=== PATIENT | female | born 1990 | race Caucasian/White ===

== ENCOUNTER 2020-06-10 15:43 | Outpatient (REF) | payer MEDICAID, SELFPAY | END 2020-06-10 15:44 | disposition home or self-care (01) | LOC: HO.LAB 15:43 | PROVIDERS: PCP Internal Medicine; Visit Provider Internal Medicine | DX: Z20.828 Contact with and (suspected) exposure to other viral communicable diseases (principal) | CPT/HCPCS: 87635 ==

== ENCOUNTER 2020-12-08 17:17 | Emergency (ER) | payer MEDICAID, SELFPAY ==
--- NOTE | ~2020-12-08 | US_ITS ---
EXAMINATION: US VENOUS WITH DOPPLER UPPER EXTREMITY, LEFT CLINICAL INFORMATION: DVT versus abscess. Pain COMPARISON: None TECHNIQUE: Ultrasound of the upper extremity is performed using compression sonography and color and pulse Doppler flow with assessment of augmentation of flow. There is also imaging and Doppler assessment of the jugular and subclavian veins. Spectral analysis with color-flow imaging is performed. FINDINGS: Respiratory variation, normal compression, and augmented flow are noted throughout the upper extremity including the axillary, brachial, cubital, and radial and ulnar veins. There is normal flow in the internal jugular and subclavian veins. There is no visible deep or superficial thrombophlebitis. There is a complex abscess in the left hand adjacent to the base of thumb measuring 3.7 x 2.4 x 3.0 cm. If the patient's symptoms progress, a followup ultrasound in 5 -7 days might be of value to exclude proximal propagation from a nonvisualized distal arm vein. US/US venous duplex UE LT IMPRESSION:. No DVT demonstrated in the left upper extremity. There is a small absence at the base of left thumb.
--- NOTE | ~2020-12-08 | XR_ITS ---
EXAMINATION: LEFT HAND CLINICAL INFORMATION: Swollen hand with question of osteomyelitis COMPARISON: None TECHNIQUE: 3 views left hand FINDINGS: Soft tissue swelling present at the base of the thumb. No bone or joint abnormality is seen. No foreign body is detected. XR/XR hand wrist LT IMPRESSION: Soft tissue swelling only.
[2020-12-08 18:36] VITALS: BP 106/54; PULSE 65; RESP 18; TEMP 37.4; O2SAT 98; BMI 21.6
[2020-12-08] MEDS: Acetaminophen 325 MG TABLET 650 MG PO ×2 (18:43→23:30)
--- NOTE | 2020-12-08 19:35 | ED.SKABFB ---
HPI - Skin/Abscess/Foreign Bdy General Chief complaint: Skin/Abscess/Foreign Body Stated complaint: abscess Time Seen by Provider: 12/08/20 19:13 Source: patient Mode of arrival: ambulatory Limitations: no limitations History of Present Illness HPI narrative: Patient presents to ED for left hand swelling/abscess for the past 4 days. Patient admits to injection heroin needle into the area. Patient admits to being a drug user of heroin. Patient also has 3-4 months . Related Data Previous Rx's Medication Instructions Recorded acetaminophen [Tylenol] 325 mg PO QID PRN #28 cap 12/08/20 clindamycin HCl 300 mg PO Q6H 10 Days #40 cap 12/08/20 Allergies Allergy/AdvReac Type Severity Reaction Status Date / Time No Known Allergies Allergy Verified 12/08/20 18:36 [No Known Allergies*] Review of Systems Review of Systems: Yes all other systems are reviewed and are negative Constitutional: Constitutional: Reports as per HPI and Reports no additional constitutional complaints Eyes: Eyes: Reports as per HPI and Reports no additional eye complaints ENT: Reports system reviewed and no additional complaints, except as documented and Reports as per HPI Cardiovascular: Cardiovascular: Reports as per HPI and Reports no additional cardiovascular complaints Respiratory: Respiratory: Reports as per HPI and Reports no additional respiratory complaints Gastrointestinal: Gastrointestinal: Reports as per HPI and Reports no additional gastrointestinal complaints Genitourinary: Genitourinary: Reports no additional female genitourinary complaints and Reports as per HPI Musculoskeletal: Musculoskeletal: Reports no additional musculoskeletal complaints, Reports as per HPI and Reports arthralgias (Left hand swelling.) Neurologic: Reports system reviewed and no additional complaints, except as documented and Reports as per HPI Psychiatric: Psychiatric: Reports no additional psychiatric complaints and Reports as per HPI [facility] Social History Social History Alcohol intake: never Smoking Status: Current every day smoker Smoked in Last 30 Days: No Substance Use Type: Heroin and IV Drugs Substance Use Frequency: Chronic Longstanding Any prior treatment program specific to substance use: No Advance Directives: No Advance Directives Information Provided: No Physical Exam Vital Signs: Vital Signs: Last Vital Signs Temp 98.9 F 12/08/20 23:50 Pulse 72 12/08/20 23:50 Resp 16 12/08/20 23:50 BP 110/72 12/08/20 23:50 Pulse Ox 98 12/08/20 18:36 Body Mass Index 21.6 Const: General: cooperative, healthy appearing, comfortable, no acute distress, well developed, alert, awake and Physically active Orientation/consciousness: patient oriented x3 HENMT: Head: Yes normal to inspection, Yes No palpable skull fracture present, Yes normocephalic, No atraumatic, No abrasion, No Murguia's sign, No contusion, No cranial bruits, No hematoma, No laceration, No occipital foramen tenderness, No palpable skull fracture, No raccoon eyes, No scalp lesion, No scalp tenderness, No Temporal artery tenderness present and No periorbital ecchymosis Eyes: General: appearance normal, both eyes and all related structures Neck: Neck: Yes normal visual inspection, Yes full ROM, Yes no lymphadenopathy, Yes no meningeal signs, Yes trachea midline, Yes supple and No tender Chest: Chest palpation & inspection: normal inspection of the chest and normal palpation of entire chest wall Resp: Effort & Inspection: normal respiratory effort and able to speak in complete sentences Auscultation: clear to auscultation bilaterally Cardio: Jugular venous distension: no JVD Heart sounds: S1 normal heart sound present and S2 normal heart sound present GI: Inspection: Yes normal to inspection Palpation (GI): Soft to palpation, not firm, nontender, no guarding and not rigid : General: No CVA tenderness and Yes no CVA tenderness Back/Spine/Pelvis: Back: no CVA tenderness, No CVA tenderness and No back tenderness Skin: General skin exam: no rashes or lesions noted and elasticity normal Neuro: General: patient oriented x3, no meningeal signs and CN's II-XI intact bilaterally Cranial nerves: Yes CN's II-XII intact bilaterally Extrem: Other: Left hand; redness and swelling of the dorsal aspect of left hand going into the thenar palm area and spreading down wrist. Patient does have complete motion of fingers. Neuro/vascular exam intact. Not suspect a tenosynovitis. . General: Yes normal to inspection and Yes full ROM Psych: Appearance: grossly normal, well kempt and not disheveled Course Course Course Narrative: History physical exam indicates cellulitis/abscess. Beleived patient benefit from IV antibiotics. Due to cannot do CT scan. Will do x-ray and send patient for ultrasound. Reevaluation(s) Reevaluation #1: After multiple attempts by nursing staff to get blood & IV access, I went to patient with ultrasound machine to perform ultrasound-guided IV so she got some IV antibiotics/labs, but patient refused. I discussed admission for IV antibiotics, but patient refused admission. Patient rather have abscess drain and start a trial of oral antibiotics. Patient refuse my attempt to do ultrasound guided IV. Reevaluation #2: Wound was cleaned with Betadine and normal saline. Wound anesthetized with 6 mL of lidocaine 2%. Size 11 blade was used for incision and pus was drained copious large amount. Wound culture sent. Patient refused packing. Patient informed to return to the ED in 2 days for wound check MDM - Skin/Abscess/Foreign Bdy MDM Narrative Medical decision making narrative: Left hand cellulitis. Abscess Lab Data Result diagrams: 12/08/20 Unknown Labs: Lab Results 12/08/20 12/08/20 Range/Units Unknown Unknown Sodium Cancelled Potassium Cancelled Chloride Cancelled Carbon Dioxide Cancelled Anion Gap Cancelled BUN Cancelled Creatinine Cancelled Estim Creat Clear Calc Cancelled Estimated GFR Cancelled Random Glucose Cancelled Calcium Cancelled Total Bilirubin Cancelled AST Cancelled ALT Cancelled Alkaline Phosphatase Cancelled C-Reactive Protein Cancelled Total Protein Cancelled Albumin Cancelled Discharge Plan Discharge Clinical Impression: Cellulitis, Abscess of skin or subcutaneous tissue Patient Disposition: Home, Self-Care Instructions: Cellulitis (ED), Abscess (ED) Additional Instructions: Return to the ED immediately for worsening redness, increased swelling of extremity, development of red streaks, fever, chills, chest pain, shortness of breath, nausea, dizziness, or any other concerning symptoms. Return to the ED in 2 days for wound check. Prescriptions: New clindamycin HCl 300 mg capsule 300 mg PO Q6H 10 Days Qty: 40 RF: 0 acetaminophen [Tylenol] 325 mg capsule 325 mg PO QID PRN (Reason: pain) Qty: 28 RF: 0 Referrals: Jasvir Payton MD [Primary Care Provider] - 2 days (Left hand cellulitis, abscess drain.) Interventions: ED Discharge Assessment Last Done: 12/08/20 23:45 Discharge Date/Time: 12/08/20 23:51 Print Language: Ukrainian
--- NOTE | 2020-12-08 21:12 | PC.NURSE ---
TRIED TO DRAW PT UNABLE TO FIND VEIN. EUGENE DIAZ ATTEMPTED TO FIND VEIN 1 SET OF BC DRAWN AND VEIN BLOWN. LAB CALLED TO DRAW LABS AND KEITH CASTAÑEDA AWARE. .
--- NOTE | 2020-12-08 22:17 | PC.NURSE ---
PT LAB HEMOLYSIS AFTER PHLEBOTOMY W[facility]TER HER LABS PT IS REFUSING A REDRAW KEITH CASTAÑEDA AWARE.
--- NOTE | 2020-12-08 22:36 | PC.NURSE ---
IV UNABLE TO BE OBTAINED PER KEITH CASTAÑEDA WE WILL DRAIN ABSCESS TO WRIST AND DO PO ANTIBIOTICS.PO XANAX WILL BE GIVEN.
[2020-12-08] MEDS: ALPRAZolam 0.5 MG TABLET 2 MG PO (22:46)
[2020-12-08] MEDS: Lidocaine HCl 2 % MPF 5 ML VIAL INFILTRATI ×2 (22:48)
--- NOTE | 2020-12-08 23:48 | PC.NURSE ---
PT REFUSED ULTRA SOUND GUIDED IV AND IV ANTIBIOTIC AT THIS TIME KEITH CASTAÑEDA WILL DRAIN ABSCESS AT BEDSIDE.
[2020-12-08 23:50] VITALS: BP 110/72; PULSE 72; RESP 16; TEMP 37.2
== END 2020-12-08 23:51 | disposition home or self-care (01) ==
PROVIDERS: Emergency Provider Internal Medicine; PCP Internal Medicine
DX: O26.892 Other specified pregnancy related conditions, second trimester (principal); L02.512 Cutaneous abscess of left hand; L03.114 Cellulitis of left upper limb; O99.322 Drug use complicating pregnancy, second trimester; F11.90 Opioid use, unspecified, uncomplicated; O99.332 Smoking (tobacco) complicating pregnancy, second trimester; Z3A.00 Weeks of gestation of pregnancy not specified
CPT/HCPCS: 10060; 36415; 73110; 73130; 80053; 86140; 87040; 87071; 87205; 93971; 96361; 96365; 96368; 99284

== ENCOUNTER 2021-10-22 21:58 | Emergency (ER) | payer MEDICAID, SELFPAY ==
[2021-10-22 22:21] VITALS: BP 107/69; PULSE 75; RESP 18; TEMP 36.4; O2SAT 97; BMI 21.5
[2021-10-22 22:51] LABS: Appearance Urine HAZY; Color Urine YELLOW; Glucose Urine UA NEG (NEG); Leukocyte Esterase Urine TRACE (NEG); Nitrite Urine NEG (NEG); Specific Gravity - Urine >= 1.030 (1.005-1.025); UACC Culture Trigger YES; Urine Blood 3+ (NEG); Urine Ketones NEG (NEG); Urine Protein TRACE MG/DL (NEG-TRACE)
[2021-10-22 23:06] LABS: Amphetamine Screen Urine Not Detected (Not Detect); Barbiturates, Urine Not Detected (Not Detect); Benzodiazepines Screen Urine POSITIVE (Not Detect); Cannabinoid Screen Urine Not Detected (Not Detect); Cocaine Screen Urine POSITIVE (Not Detect); Fentanyl, urine POSITIVE (Not Detect); Opiate Screen Urine POSITIVE (Not Detect); Phencyclidine Screen Urine Not Detected (Not Detect)
[2021-10-22 23:07] LABS: UPreg QC Valid YES; Urine Pregnancy NEGATIVE (NEGATIVE)
[2021-10-22 23:12] LABS: Bacteria Urine 2+ /LPF; Mucus Urine 2+ /LPF; Squamous Epithelial Cell Urine 1+ /LPF
--- NOTE | 2021-10-22 23:20 | ED.GENADULT ---
HPI - General Adult General Chief complaint: General Medical Stated complaint: post Time Seen by Provider: 10/22/21 22:42 Source: patient Mode of arrival: ambulatory Limitations: no limitations History of Present Illness HPI narrative: Patient comes to the emergency room complaining of dysuria, hematuria, vaginal discharge. Patient also states that she has been dealing with depression, patient has a 4-month-old baby. Patient states she has an 8-year-old child, when the child was born patient had similar symptoms. Patient denies suicidal or homicidal ideation. Patient denies abdominal pain, no fever or chills, no flank or abdominal pain. Related Data Previous Rx's Medication Instructions Recorded acetaminophen 325 mg capsule 325 mg PO QID PRN #28 cap 12/08/20 (Tylenol) clindamycin HCl 300 mg capsule 300 mg PO Q6H 10 Days #40 cap 12/08/20 doxycycline hyclate 100 mg capsule 100 mg PO DAILY #13 cap 10/22/21 sulfamethoxazole 800 1 tab PO BID #5 tab 10/22/21 mg-trimethoprim 160 mg tablet (Bactrim DS) Allergies Allergy/AdvReac Type Severity Reaction Status Date / Time No Known Allergies Allergy Verified 10/22/21 22:20 [No Known Allergies*] Review of Systems Review of Systems: Constitutional : No Weight loss, No Fever, No Chills, No Night Sweats, No Fatigue, No Malaise ENT/Mouth : No Hearing loss, No Ear Pain, No Nasal Congestion, No Sinus Pain, No Hoarseness, No sore throat, No Rhinorrhea, No Swallowing Difficulty Eyes: No Eye Pain, No Swelling, No Redness, No Foreign Body, No Discharge, No Vision Changes Cardiovascular : No Chest Pain, No SOB, No Dyspnea on Exertion, No Orthopnea, No Edema, No Palpitations Respiratory : No Cough, No Sputum, No Wheezing, No Smoke Exposure, No Dyspnea Gastrointestinal : No Nausea, No Vomiting, No Diarrhea, No Constipation, No abdominal Pain, No Hematochezia, No Melena Genitourinary : Complaining of dysuria, hematuria, urgency, no flank pain Musculoskeletal : No joint pain, No Myalgias, No Joint Swelling Skin : No Skin Lesions, No rash Neuro : No Weakness, No Numbness, No Paresthesias, No Loss of Consciousness, No Dizziness, No Headache Psych : Complaining of depression, depression, no suicidal ideation, no homicidal ideation Heme/Lymph: No Bruising, No Bleeding,No Lymphadenopathy Endocrine : No Polyuria, No Polydipsia, No Temperature Intolerance [facility] Past Medical History Medical History Asthma Chronic pain Hepatitis C Lumbar vertebral fracture depression Substance abuse Wrist fracture Social History Social History Alcohol intake: never Substance Use Type: Heroin and IV Drugs Advance Directives: No Advance Directives Information Provided: Yes Physical Exam ED Vital Signs: Vital Signs - 24 hr 10/22/21 22:21 Temperature 97.6 F Pulse Rate 75 Respiratory Rate 18 Blood Pressure 107/69 Pulse Oximetry 97 BMI result Body Mass Index 21.5 Const Other: Appearance: Alert. Oriented X3. No acute distress. Eyes: Pupils equal, round and reactive to light. ENT: Pharynx normal. Neck: Normal inspection. Neck supple. No lymph nodes noted. No crepitus CVS: Normal heart rate and rhythm. Pulses normal. Normal S1 and S2 Respiratory: No respiratory distress. Breath sounds normal. No Wheezing. No rales Abdomen: Soft and nontender. No rigidity. No distention. : Declined, requested empiric treatment for STDs Skin: Skin warm and dry. Normal skin color. Normal skin turgor. Extremities: No lower extremity edema. No Lacerations. No Rash Neuro: Oriented X 3. No motor deficit. No sensory deficit. Moving all extermities. No slurred speech. Cranial nerves 2-12 grossly intact Psych: Calm, cooperative, normal speech Course Course Course Narrative: Patient does have a UTI. Patient given ceftriaxone and p.o. doxycycline, 1 dose of Bactrim. Patient states that she is concerned that she will not be able to have a right after a certain time. At this time, patient is requesting that we only treat her for STD and urinary tract infection. At this time, patient states that she does not want to wait to be seen by [facility]. Patient states that she is not suicidal, not homicidal, and her baby safe at home Medical Decision Making Lab Data Labs: Lab Results 10/22/21 10/22/21 10/22/21 Range/Units 22:26 22:26 22:26 Urine Color YELLOW Urine Appearance HAZY Urine pH 6.0 (5.0-8.0) Ur Specific [place] >= 1.030 H (1.005-1.025) Urine Protein TRACE (NEG-TRACE) MG/DL Urine Glucose (UA) NEG (NEG) MG/DL Urine Ketones NEG (NEG) MG/DL Urine Blood 3+ H (NEG) Urine Nitrite NEG (NEG) Ur Leukocyte Esterase TRACE H (NEG) Urine RBC 15-29 H (0) /HPF Urine WBC 10-14 H (0-4) /HPF Ur Squamous Epith Cells 1+ /LPF Urine Bacteria 2+ /LPF Urine Mucus 2+ /LPF Urine Test NEGATIVE (NEGATIVE) Urine Opiates Screen POSITIVE H (Not Detect) Urine Fentanyl Screen POSITIVE H (Not Detect) Ur Barbiturates Screen Not Detected (Not Detect) Ur Phencyclidine Scrn Not Detected (Not Detect) Ur Amphetamines Screen Not Detected (Not Detect) U Benzodiazepines Scrn POSITIVE H (Not Detect) Urine Cocaine Screen POSITIVE H (Not Detect) U Marijuana (THC) Screen Not Detected (Not Detect) Discharge Plan Discharge Clinical Impression: UTI (urinary tract infection), Exposure to STD Patient Disposition: Home, Self-Care Instructions: Urinary Tract Infection in Women (DC) Additional Instructions: Please follow-up with your primary care physician tomorrow. If you have any worsening or new symptoms, please return to the emergency room or call 911 Prescriptions: New doxycycline hyclate 100 mg capsule 100 mg PO DAILY Qty: 13 0RF sulfamethoxazole-trimethoprim [Bactrim DS] 800-160 mg tablet 1 tab PO BID Qty: 5 0RF No Action clindamycin HCl 300 mg capsule 300 mg PO Q6H 10 Days Qty: 40 0RF acetaminophen [Tylenol] 325 mg capsule 325 mg PO QID PRN (Reason: pain) Qty: 28 0RF
[2021-10-22] MEDS: cefTRIAXone sodium 500 MG, Lidocaine HCl 1 % MPF 1 ML IM (23:32)
[2021-10-22] MEDS: Sulfamethox/Trimeth 800/160 TABLET 1 TAB PO (23:32)
--- NOTE | 2021-10-22 23:48 | PC.NURSE ---
provider into assess pt. Reviewed plan of care and medication. pt medicated per mar. Pt verbalized understanding.
== END 2021-10-22 23:54 | disposition home or self-care (01) ==
PROVIDERS: Emergency Provider Emergency Medicine
DX: N39.0 Urinary tract infection, site not specified (principal); R30.0 Dysuria; R31.9 Hematuria, unspecified; N89.8 Other specified noninflammatory disorders of vagina; Z20.2 Contact with and (suspected) exposure to infections with a predominantly sexual mode of transmission; Z79.899 Other long term (current) drug therapy
CPT/HCPCS: 80307; 81001; 81003; 81025; 87086; 96360; 96372; 99284; J0696

== ENCOUNTER 2021-10-26 06:17 | Inpatient (IN) | payer OTHER, SELFPAY ==
[2021-10-26 06:58] VITALS: BP 128/73; PULSE 50; TEMP 36.7; O2SAT 98
--- NOTE | 2021-10-26 07:06 | PC.ADMIT ---
Patient is a 31 year old woman who arrived at [facility] from [facility] at 6:20am by ambulance VS on on arrival were 98.1 P 50 128/73 Sat 97% She signed a CV and is settling on to the unit. She is alert and oriented.
[2021-10-26] MEDS: clonazePAM 0.5 MG TABLET PO (12:10)
[2021-10-26] MEDS: methADONE HCl 20 MG/2 ML ORAL.CONC 160 MG PO (12:10)
[2021-10-26] MEDS: ALPRAZolam 0.5 MG TABLET 2 MG PO ×3 (13:30→20:21)
[2021-10-26] MEDS: Nicotine 21 MG PATCH.TD24 TRANSDERMA (14:34)
[2021-10-26] MEDS: Nicotine Polacrilex 2 MG GUM 4 MG BUCCAL (14:35)
[2021-10-26] MEDS: Gabapentin 400 MG CAPSULE 800 MG PO ×3 (14:35→19:24)
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
[2021-10-26 18:00] VITALS: BP 118/68; PULSE 92; RESP 16; TEMP 36.8; O2SAT 98
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
[2021-10-26] MEDS: QUEtiapine Fumarate 50 MG TABLET PO (20:20)
--- NOTE | 2021-10-27 | ECG_ITS ---
Test Reason : MED CHECK Blood Pressure : / mmHG Vent. Rate : 050 BPM Atrial Rate : 050 BPM P-R Int : 164 ms QRS Dur : 084 ms QT Int : 512 ms P-R-T Axes : 044 067 053 degrees QTc Int : 466 ms Sinus bradycardia with sinus arrhythmia Otherwise normal ECG No previous ECGs available Referred By: Braxton Santana Electronically Signed By:Noah Regalado
[2021-10-27 06:00] VITALS: BP 123/73; PULSE 73; RESP 16; TEMP 36.9; O2SAT 98
[2021-10-27 09:00] LABS: Estimated Average Glucose 105 mg/dL; Hemoglobin A1c % 5.3 %
[2021-10-27 09:06] LABS: Alanine Aminotransferase 259 U/L (0-31); Albumin Level 3.5 g/dL (3.5-5.0); Alkaline Phosphatase 129 U/L (39-117); Aspartate Amino Transferase 205 U/L (5-31); Bilirubin Direct < 0.2 mg/dL (0.0-0.5); Bilirubin Total 0.3 mg/dL (0.0-1.0); Cholesterol 110 mg/dL; HDL Cholesterol 32 mg/dL; LDL Cholesterol Calculated 46 mg/dl; Total Protein 8.5 g/dL (6.5-8.0); Triglycerides 162 mg/dL
[2021-10-27] MEDS: Gabapentin 400 MG CAPSULE 800 MG PO ×4 (09:16→19:39)
[2021-10-27] MEDS: methADONE HCl 20 MG/2 ML ORAL.CONC 160 MG PO (09:17)
[2021-10-27 09:23] LABS: HIV AB/AG Nonreactive (Nonreactive); HIV Num 1 0.09 S/CO (0.00-0.99)
[2021-10-27 09:24] LABS: HBS Num1 88.61 mIU/mL (0-7.99); HBc Num1 0.19 S/CO (0.00-0.79); Hepatitis B Core Antibody Nonreactive (Nonreactive); ~HepC Num1 19.03 S/CO (0.00-0.79); ~Hepatitis B Surface Antibody REACTIVE (Nonreactive); ~Hepatitis C Antibody Reactive (Nonreactive)
[2021-10-27 09:29] LABS: HBsAGNum1 0.26 S/CO (0.00-0.99); Hepatitis B Surface Antigen Negative (Negative)
[2021-10-27 09:38] LABS: Syphilis Screen Reactive (Nonreactive)
[2021-10-27] MEDS: Nicotine Polacrilex 2 MG GUM 4 MG BUCCAL ×2 (09:41→12:23)
[2021-10-27] MEDS: Nicotine 21 MG PATCH.TD24 TRANSDERMA (09:41)
[2021-10-27] MEDS: ALPRAZolam 0.5 MG TABLET 2 MG PO ×2 (09:54→19:39)
--- NOTE | 2021-10-27 09:59 | P.PNPSI_ITS ---
Subjective Subjective Date of Service: 10/27/21 Reason For Visit: Post Interim History: Patient reports her mood is better. She agrees to trial of lithium after jingle writer discussed risks/side effects of mood stabilizers; initially she preferred Depakote however is concerned about her liver. Patient asked for her methadone dose to be increased to which jingle writer agreed; she says that she has a very hard time remaining sober on current dose and used to be on 200 mg. Furnace Brazer discussed lab worker with her and need for follow-up labs for T pallidum. Furnace Brazer also discussed placing a hep C consult to which patient appreciated. Patient denies any SI and is looking for to seeing her baby who is going to visit this weekend. Patient is appropriate with peers and staff and appropriately social in the milieu. She said she would like her Xanax to be left as a p.r.n. so that she can see if she can delay taking it or even skip a dose if she does not feel the need for it, in effort to see if she can over time wean herself off of this medication Mental Status Exam Mental Status Exam Narrative: Pt is alert and oriented; behavior is cooperative, friendly and calm; patient is not in distress; dressed in casual attire, adequately groomed with good hygiene; mood is described as good and affect congruent, brighter; eye contact appropriate; Speech is normal rate, volume and prosody and not pressured; no psychomotor agitation/retardation present; thought process is organized and goal directed; Thought content is on tx; otherwise pertinent to relevant topics and without any delusional content, paranoid ideations or grandiosity; denies any SI/HI. There is no evidence of perceptual disturbance. ?Patients insight and judgment appear intact. Diagnostics Vital Signs (24Hr): Vital Signs - 24 hr 10/26/21 18:00 10/27/21 06:00 Temperature 98.2 F 98.4 F Pulse Rate 92 73 Respiratory Rate 16 16 Blood Pressure 118/68 123/73 Pulse Oximetry 98 98 Labs Labs: Laboratory Results - last 48 hr 10/27/21 10/27/21 10/27/21 08:35 08:35 08:35 Estimat Average Glucose 105 Hemoglobin A1c % 5.3 Total Bilirubin 0.3 Direct Bilirubin < 0.2 AST 205 H ALT 259 H Alkaline Phosphatase 129 H Total Protein 8.5 H Albumin 3.5 Triglycerides 162 Cholesterol 110 LDL Cholesterol, Calc 46 HDL Cholesterol 32 T.pallidum Ab (EIA) Hep Bs Antigen Negative Hep Bs Antibody REACTIVE Hep B Core Total Ab Nonreactive Hepatitis C Ab (EIA) Reactive H HIV 1&2 Ab/P24 Ag 4thGn 10/27/21 10/27/21 08:35 08:35 Estimat Average Glucose Hemoglobin A1c % Total Bilirubin Direct Bilirubin AST ALT Alkaline Phosphatase Total Protein Albumin Triglycerides Cholesterol LDL Cholesterol, Calc HDL Cholesterol T.pallidum Ab (EIA) Reactive A Hep Bs Antigen Hep Bs Antibody Hep B Core Total Ab Hepatitis C Ab (EIA) HIV 1&2 Ab/P24 Ag 4thGn Nonreactive Medications Medications Current Medications Al Hydroxide/Mg Hydroxide (Magnesium Hydrox/Alum Hydrox 30 Ml Oral.Susp) 30 ml PO Q6H PRN PRN Reason: Heartburn/Nausea Albuterol Sulfate (Albuterol Sulfate 90 Mcg 8 Gm Inhaler) 2 puff INHALE Q4H PRN PRN Reason: Anxiety Alprazolam (Alprazolam 0.5 Mg Tablet) 2 mg PO TID PRN PRN Reason: anxiety Last Admin: 10/27/21 09:54 Dose: 2 mg Documented by: Doxycycline Hyclate (Doxycycline Hyclate 100 Mg Tablet) 100 mg PO Q12H [facility] Stop: 11/02/21 08:01 Last Admin: 10/27/21 09:17 Dose: 100 mg Documented by: Gabapentin (Gabapentin 400 Mg Capsule) 800 mg PO QID [facility] Last Admin: 10/27/21 09:16 Dose: 800 mg Documented by: Hydrocortisone (Hydrocortisone 1 % Cream 28.35 Gm Tube) 1 appl TOPICAL BID PRN; Protocol PRN Reason: eczema Hydroxyzine HCl (Hydroxyzine Hcl 25 Mg Tablet) 25 mg PO QID PRN PRN Reason: Anxiety Ibuprofen (Ibuprofen 800 Mg Tablet) 800 mg PO Q8H PRN PRN Reason: Pain, Mild (Pain Scale 1-3) Magnesium Hydroxide (Milk Of Magnesia 30 Ml Oral.Susp) 30 ml PO DAILY PRN PRN Reason: Constipation Methadone HCl (Methadone Hcl 20 Mg/2 Ml Oral.Conc) 160 mg PO DAILY [facility] Last Admin: 10/27/21 09:17 Dose: 160 mg Documented by: Nicotine (Nicotine 21 Mg Patch.Td24) 21 mg TRANSDERMA DAILY PRN PRN Reason: smoking cessastion Last Admin: 10/27/21 09:41 Dose: 21 mg Documented by: Nicotine Polacrilex (Nicotine Polacrilex 2 Mg Gum) 4 mg BUCCAL Q2H PRN PRN Reason: nicotine cravings Last Admin: 10/27/21 09:41 Dose: 4 mg Documented by: Ondansetron HCl (Ondansetron Odt 8 Mg Tab.Rapdis) 8 mg TRANSLINGU BID PRN PRN Reason: nausea Quetiapine Fumarate (Quetiapine Fumarate 50 Mg Tablet) 50 mg PO BEDTIME PRN PRN Reason: insomnia Last Admin: 10/26/21 20:20 Dose: 50 mg Documented by: Quetiapine Fumarate (Quetiapine Fumarate 50 Mg Tablet) 50 mg PO BEDTIME PRN PRN Reason: continued insomnia Allergies Allergies Allergy/AdvReac Type Severity Reaction Status Date / Time No Known Allergies Allergy Verified 10/22/21 22:20 [No Known Allergies*] Assessment & Plan Assessment & Plan (1) Bipolar 1 disorder, mixed: Status: Acute Code(s): F31.60 - Bipolar disorder, current episode mixed, unspecified (2) Chronic post-traumatic stress disorder (PTSD): Status: Acute Code(s): F43.12 - Post-traumatic stress disorder, chronic (3) Opioid dependence: Status: Acute Code(s): F11.20 - Opioid dependence, uncomplicated (4) Cocaine abuse: Status: Acute Code(s): F14.10 - Cocaine abuse, uncomplicated (5) Asthma: Qualifiers: Asthma complication type: unspecified Status: Acute Code(s): J45.909 - Unspecified asthma, uncomplicated (6) Lumbar vertebral fracture: Status: Acute Code(s): S32.009A - Unspecified fracture of unspecified lumbar vertebra, initial encounter for closed fracture (7) Wrist fracture: Status: Acute Code(s): S62.109A - Fracture of unspecified carpal bone, unspecified wrist, initial encounter for closed fracture (8) Hepatitis C: Status: Acute Code(s): B19.20 - Unspecified viral hepatitis C without hepatic coma Plan Pt is a 31 yo female with hx of ptsd, manic episodes, opioid dependence on methadone, cocaine abuse, spinal fusion surgery, who presents for depression in face of off medications and heroin abuse -pt meets criteria for bipolar type 1 with mixed symptoms; pt is considering Mood stabilizer. Pt also meets criteria for Ptsd -on high dose of Xanax 2mg TID which she says she's been taking for years; jingle writer agrees to continue while on unit since she has outpt prescriber and plans to continue; discussed risk/side-effects of benzo use including barrier to resolving PtSD -elevated ALT/AST with hx of unprotected sex, IV drug use. Will check for Hep C -pt is currently depressed, no manic symptoms, organized speech and behavior and seeking treatment 3/4 patient reports mood improved and that she is feeling stable; no SI. Agrees to lithium trial for bipolar disorder; asks for increasing methadone to which jingle writer agrees; demonstrates good insight and judgment by asking for Xanax to be changed to p.r.n. so she can work on delaying asking for it or even skipping it if a needed PLAN: CV q15min checks Bipolar disorder -Pt will start on [place] [facility] 600mg; likely titrated -will order labs -Seroquel 50mg qhs w/ repeat for insomnia Opioid addiction: -increase to Methadone 170mg daily; patient says she has much trouble staying sober on lower doses PTSD -would consider sSRI, but not mood stabilized -continue Xanax 2mg TID prn (she says she's been taking for years; jingle writer agrees to continue as she is currently working on mood stability and to nancy someone off Xanax can take months; also, she has outpt prescriber and plans to continue with this med making taper just on unit a distraction; discussed risk/side- effects of benzo use including barrier to resolving PtSD Hep C -will place ID consult Elevated LfT's -likely due to a hepatitis C infection -LFTs elevated but stable -will monitor -labs reviewed from [facility]: neg UPT, neg covid; CBC, bun/cr and Lytes grossly wnl Chronic back pain s/p lumbar vertebral fracture with repair -continue gabapentin 800 mg q.i.d. which is outpatient medication regimen hospitalist consult: # recent unprotected intercourse -complete presumptive treatment with doxycycline x7d; -screen for T.pallidum positive -additional RPR orders placed -HIV, HBV]: non-reactive I spent minutes with the patient and/or on the patient floor today, greater than?50% of which was spent counseling/coordinating care. Patient educated on: diagnosis, medication risk/benefits and substance abuse Informed Consent: understands Reason for contiued inpatient stay Substantial Risk for: rapid decompensation
[2021-10-27] MEDS: methADONE HCl 20 MG/2 ML ORAL.CONC 5 MG PO (16:33)
[2021-10-27 18:00] VITALS: BP 134/81; PULSE 86; RESP 16; TEMP 36.4; O2SAT 99
[2021-10-28 06:00] VITALS: BP 122/71; PULSE 83; TEMP 36.8; O2SAT 98
[2021-10-28] MEDS: Nicotine 21 MG PATCH.TD24 TRANSDERMA (08:52)
[2021-10-28] MEDS: Lidocaine 4 % Patch ADH..PATCH 1 PATCH TRANSDERMA (08:52)
[2021-10-28] MEDS: methADONE HCl 20 MG/2 ML ORAL.CONC 170 MG PO (08:52)
[2021-10-28] MEDS: Gabapentin 400 MG CAPSULE 800 MG PO ×4 (08:52→19:50)
[2021-10-28] MEDS: ALPRAZolam 0.5 MG TABLET 2 MG PO ×3 (09:06→19:17)
[2021-10-28] MEDS: Nicotine Polacrilex 2 MG GUM 4 MG BUCCAL ×3 (12:50→19:50)
--- NOTE | 2021-10-28 15:14 | W.PM.IDCN ---
History of Present Illness Data of Consult Service Date: 10/27/21 Requesting physician: Braxton Santana Primary Care Provider: Unknown Physician HPI Reason for consult: hepatitis C,positive RPR She presents with depression she describes as bipolar. She has had previous manic episodes and hasnt slept for eight days in past. She was recently treated for dysuria and hematuria with Bactrim 10/22 ER and given Doxycycline 100 mg bid for a week ?concern vaginal discharge Her labs so far now show negative HIV, vaccinated Hepatitis B,negative COVID and positive syphilis screening serology and positive Hepatitis C antibody She has heard Hepatitis C was positive only. Review of Systems Review of Systems: Yes all other systems are reviewed and are negative PMFSH Past Medical History Medical History (Updated 10/28/21 @ 15:19 by Jenae Husain MD) Asthma Bipolar 1 disorder, mixed Chronic pain Chronic post-traumatic stress disorder (PTSD) Cocaine abuse Hepatitis C Lumbar vertebral fracture Opioid dependence Positive serology for syphilis depression Substance abuse Wrist fracture Family History Family history: reviewed and not pertinent Surgical History Surgical History H/O wrist surgery History of back surgery Social History Social History Alcohol intake: current Patient Tobacco Use Status: Current everyday Tobacco user Tobacco use type: Cigarette Second Hand Smoke Exposure: Yes Substance Use Type: Crack/Cocaine, Opiates and Prescription Drugs service: No Sexual orientation: Straight/Heterosexual Meds Allergies Allergy/AdvReac Type Severity Reaction Status Date / Time No Known Allergies Allergy Verified 10/22/21 22:20 [No Known Allergies*] Active Medications: Current Medications Al Hydroxide/Mg Hydroxide (Magnesium Hydrox/Alum Hydrox 30 Ml Oral.Susp) 30 ml PO Q6H PRN PRN Reason: Heartburn/Nausea Albuterol Sulfate (Albuterol Sulfate 90 Mcg 8 Gm Inhaler) 2 puff INHALE Q4H PRN PRN Reason: Anxiety Alprazolam (Alprazolam 0.5 Mg Tablet) 2 mg PO TID PRN PRN Reason: anxiety Last Admin: 10/28/21 12:50 Dose: 2 mg Documented by: Doxycycline Hyclate (Doxycycline Hyclate 100 Mg Tablet) 100 mg PO Q12H [facility] Stop: 11/02/21 08:01 Last Admin: 10/28/21 08:52 Dose: 100 mg Documented by: Gabapentin (Gabapentin 400 Mg Capsule) 800 mg PO QID [facility] Last Admin: 10/28/21 12:50 Dose: 800 mg Documented by: Hydrocortisone (Hydrocortisone 1 % Cream 28.35 Gm Tube) 1 appl TOPICAL BID PRN; Protocol PRN Reason: eczema Hydroxyzine HCl (Hydroxyzine Hcl 25 Mg Tablet) 25 mg PO QID PRN PRN Reason: Anxiety Lidocaine (Lidocaine 4 % Patch Adh..Patch) 1 patch TRANSDERMA DAILY [facility]; Protocol Last Admin: 10/28/21 08:52 Dose: 1 patch Documented by: [place] Carbonate ([place] Carbonate Er 300 Mg Tablet.Er) 600 mg PO BEDTIME [facility] Last Admin: 10/27/21 19:40 Dose: Not Given Documented by: Magnesium Hydroxide (Milk Of Magnesia 30 Ml Oral.Susp) 30 ml PO DAILY PRN PRN Reason: Constipation Methadone HCl (Methadone Hcl 20 Mg/2 Ml Oral.Conc) 165 mg PO DAILY [facility] Nicotine (Nicotine 21 Mg Patch.Td24) 21 mg TRANSDERMA DAILY [facility] Last Admin: 10/28/21 08:52 Dose: 21 mg Documented by: Nicotine Polacrilex (Nicotine Polacrilex 2 Mg Gum) 4 mg BUCCAL Q2H PRN PRN Reason: nicotine cravings Last Admin: 10/28/21 12:50 Dose: 4 mg Documented by: Ondansetron HCl (Ondansetron Odt 8 Mg Tab.Rapdis) 8 mg TRANSLINGU BID PRN PRN Reason: nausea Quetiapine Fumarate (Quetiapine Fumarate 50 Mg Tablet) 50 mg PO BEDTIME PRN PRN Reason: insomnia Last Admin: 10/26/21 20:20 Dose: 50 mg Documented by: Quetiapine Fumarate (Quetiapine Fumarate 50 Mg Tablet) 50 mg PO BEDTIME PRN PRN Reason: continued insomnia Physical Exam Vital Signs: Vital Signs: Last Vital Signs Temp 98.2 F 10/28/21 06:00 Pulse 83 10/28/21 06:00 Resp 16 10/27/21 18:00 BP 122/71 10/28/21 06:00 Pulse Ox 98 10/28/21 06:00 Const: General: cooperative Orientation/consciousness: patient oriented x3 HENMT: Head: Yes normal to inspection Mouth: Normal oral and palatal mucosa present Resp: Effort & Inspection: normal respiratory effort Cardio: Rate: regular rate Rhythm: regular rhythm GI: Palpation (GI): Soft to palpation and nontender Skin: General skin exam: no rashes or lesions noted Neuro: General: patient oriented x3 Extrem: General: Yes normal to inspection Results Labs Labs: Short CBC 10/27/21 Range/Units 08:35 T.pallidum Ab (EIA) Reactive A (Nonreactive) Assessment and Plan (1) Hepatitis C: Status: Acute She has positive serology She needs treatment if positive viral load I dont see any treatment history (2) Positive serology for syphilis: Status: Acute Confirmatory treponemal specific test pending,TPA (3) Tobacco abuse: Status: Acute (4) Opioid dependence: Status: Acute (5) Cocaine abuse: Status: Acute Plan Check hepatitis C viral load,fibrosis test and genotype and see as outpatient ,start meds if needed Await treponemal specific syphilis testing (false positive can occur commonly in recently ) Agree with selfcollected vaginal swab for GC /chlamydia and check oral swab for GC/chlamydia if area of concern also. She was partially treated for syphilis with Doxycycline ,but wait confirmatory anyway.
--- NOTE | 2021-10-28 15:27 | HO.PSYCHPN ---
Subjective Subjective Date of Service: 10/28/21 Reason For Visit: Post Subjective Notes: Conditional Voluntary Interim History: Katey is quite oversedated. Will lower methadone and add hold for xanax is sedated. She needs re-direction away from her male peers. Medication Compliance: Yes Mental Status Exam Mental Status Exam Narrative: Pt is alert and oriented; behavior is cooperative, friendly and calm; patient is not in distress; dressed in casual attire, adequately groomed with good hygiene; mood is described as good and affect congruent, brighter; eye contact appropriate; Speech is normal rate, volume and prosody and not pressured; no psychomotor agitation/retardation present; thought process is organized and goal directed; Thought content is on tx; otherwise pertinent to relevant topics and without any delusional content, paranoid ideations or grandiosity; denies any SI/HI. There is no evidence of perceptual disturbance. ?Patients insight and judgment appear intact. Diagnostics Vital Signs (24Hr): Vital Signs - 24 hr 10/27/21 18:00 10/28/21 06:00 Temperature 97.6 F 98.2 F Pulse Rate 86 83 Respiratory Rate 16 Blood Pressure 134/81 122/71 Pulse Oximetry 99 98 Labs Labs: Laboratory Results - last 48 hr 10/27/21 10/27/21 10/27/21 08:35 08:35 08:35 Estimat Average Glucose 105 Hemoglobin A1c % 5.3 Total Bilirubin 0.3 Direct Bilirubin < 0.2 AST 205 H ALT 259 H Alkaline Phosphatase 129 H Total Protein 8.5 H Albumin 3.5 Triglycerides 162 Cholesterol 110 LDL Cholesterol, Calc 46 HDL Cholesterol 32 T.pallidum Ab (EIA) Hep Bs Antigen Negative Hep Bs Antibody REACTIVE Hep B Core Total Ab Nonreactive Hepatitis C Ab (EIA) Reactive H HIV 1&2 Ab/P24 Ag 4thGn 10/27/21 10/27/21 08:35 08:35 Estimat Average Glucose Hemoglobin A1c % Total Bilirubin Direct Bilirubin AST ALT Alkaline Phosphatase Total Protein Albumin Triglycerides Cholesterol LDL Cholesterol, Calc HDL Cholesterol T.pallidum Ab (EIA) Reactive A Hep Bs Antigen Hep Bs Antibody Hep B Core Total Ab Hepatitis C Ab (EIA) HIV 1&2 Ab/P24 Ag 4thGn Nonreactive Medications Medications Current Medications Al Hydroxide/Mg Hydroxide (Magnesium Hydrox/Alum Hydrox 30 Ml Oral.Susp) 30 ml PO Q6H PRN PRN Reason: Heartburn/Nausea Albuterol Sulfate (Albuterol Sulfate 90 Mcg 8 Gm Inhaler) 2 puff INHALE Q4H PRN PRN Reason: Anxiety Alprazolam (Alprazolam 0.5 Mg Tablet) 2 mg PO TID PRN PRN Reason: anxiety Last Admin: 10/28/21 12:50 Dose: 2 mg Documented by: Doxycycline Hyclate (Doxycycline Hyclate 100 Mg Tablet) 100 mg PO Q12H [facility] Stop: 11/02/21 08:01 Last Admin: 10/28/21 08:52 Dose: 100 mg Documented by: Gabapentin (Gabapentin 400 Mg Capsule) 800 mg PO QID [facility] Last Admin: 10/28/21 12:50 Dose: 800 mg Documented by: Hydrocortisone (Hydrocortisone 1 % Cream 28.35 Gm Tube) 1 appl TOPICAL BID PRN; Protocol PRN Reason: eczema Hydroxyzine HCl (Hydroxyzine Hcl 25 Mg Tablet) 25 mg PO QID PRN PRN Reason: Anxiety Lidocaine (Lidocaine 4 % Patch Adh..Patch) 1 patch TRANSDERMA DAILY [facility]; Protocol Last Admin: 10/28/21 08:52 Dose: 1 patch Documented by: [place] Carbonate ([place] Carbonate Er 300 Mg Tablet.Er) 600 mg PO BEDTIME [facility] Last Admin: 10/27/21 19:40 Dose: Not Given Documented by: Magnesium Hydroxide (Milk Of Magnesia 30 Ml Oral.Susp) 30 ml PO DAILY PRN PRN Reason: Constipation Methadone HCl (Methadone Hcl 20 Mg/2 Ml Oral.Conc) 165 mg PO DAILY [facility] Nicotine (Nicotine 21 Mg Patch.Td24) 21 mg TRANSDERMA DAILY [facility] Last Admin: 10/28/21 08:52 Dose: 21 mg Documented by: Nicotine Polacrilex (Nicotine Polacrilex 2 Mg Gum) 4 mg BUCCAL Q2H PRN PRN Reason: nicotine cravings Last Admin: 10/28/21 12:50 Dose: 4 mg Documented by: Ondansetron HCl (Ondansetron Odt 8 Mg Tab.Rapdis) 8 mg TRANSLINGU BID PRN PRN Reason: nausea Quetiapine Fumarate (Quetiapine Fumarate 50 Mg Tablet) 50 mg PO BEDTIME PRN PRN Reason: insomnia Last Admin: 10/26/21 20:20 Dose: 50 mg Documented by: Quetiapine Fumarate (Quetiapine Fumarate 50 Mg Tablet) 50 mg PO BEDTIME PRN PRN Reason: continued insomnia Allergies Allergies Allergy/AdvReac Type Severity Reaction Status Date / Time No Known Allergies Allergy Verified 10/22/21 22:20 [No Known Allergies*] Assessment & Plan Assessment & Plan (1) Hepatitis C: Status: Acute Code(s): B19.20 - Unspecified viral hepatitis C without hepatic coma (2) Positive serology for syphilis: Status: Acute Code(s): A53.0 - Latent syphilis, unspecified as early or late (3) Tobacco abuse: Status: Acute Code(s): Z72.0 - Tobacco use (4) Opioid dependence: Status: Acute Code(s): F11.20 - Opioid dependence, uncomplicated (5) Cocaine abuse: Status: Acute Code(s): F14.10 - Cocaine abuse, uncomplicated I spent minutes with the patient and/or on the patient floor today, greater than?50% of which was spent counseling/coordinating care. Patient educated on: diagnosis and medication risk/benefits Informed Consent: further education needed Reason for contiued inpatient stay Substantial Risk for: rapid decompensation
[2021-10-28 20:05] VITALS: BP 126/83; PULSE 52; RESP 16; TEMP 36.6; O2SAT 98
[2021-10-29 06:00] VITALS: BP 114/82; PULSE 88; TEMP 37.1; O2SAT 97
[2021-10-29] MEDS: Albuterol Sulfate 90 MCG 8 GM INHALER 2 PUFF INHALE ×2 (06:12→18:40)
[2021-10-29] MEDS: Nicotine Polacrilex 2 MG GUM 4 MG BUCCAL ×3 (06:14→18:43)
[2021-10-29] MEDS: ALPRAZolam 0.5 MG TABLET 2 MG PO ×3 (06:14→19:07)
[2021-10-29] MEDS: Lidocaine 4 % Patch ADH..PATCH 1 PATCH TRANSDERMA (08:33)
[2021-10-29] MEDS: Gabapentin 400 MG CAPSULE 800 MG PO ×4 (08:33→20:30)
[2021-10-29] MEDS: Nicotine 21 MG PATCH.TD24 TRANSDERMA (08:33)
[2021-10-29] MEDS: methADONE HCl 20 MG/2 ML ORAL.CONC 165 MG PO (08:35)
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
[2021-10-29 18:00] VITALS: BP 134/72; PULSE 63; RESP 18; TEMP 36.9; O2SAT 97
[2021-10-30] MEDS: Nicotine Polacrilex 2 MG GUM 4 MG BUCCAL ×2 (00:01→14:39)
[2021-10-30 00:58] LABS: CT PCR NOT DETECTED (Not Detect.); NG PCR NOT DETECTED (Not Detect.)
[2021-10-30 06:00] VITALS: BP 123/72; PULSE 77; RESP 18; TEMP 36.6; O2SAT 98
[2021-10-30] MEDS: Gabapentin 400 MG CAPSULE 800 MG PO ×2 (08:11→13:10)
[2021-10-30] MEDS: Nicotine 21 MG PATCH.TD24 TRANSDERMA (08:11)
[2021-10-30] MEDS: Lidocaine 4 % Patch ADH..PATCH 1 PATCH TRANSDERMA (08:12)
[2021-10-30] MEDS: methADONE HCl 20 MG/2 ML ORAL.CONC 165 MG PO (08:13)
[2021-10-30] MEDS: ALPRAZolam 0.5 MG TABLET 2 MG PO ×2 (08:23→14:39)
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
[2021-10-30] MEDS: QUEtiapine Fumarate 100 MG TABLET PO ×2 (10:44→13:10)
--- NOTE | 2021-10-30 13:32 | PM.PSYDC ---
DS: Providers Provider Date of Service: 10/30/21 Date of admission: 10/26/21 06:17 Date of discharge: 10/30/21 Primary care physician: Unknown Physician Attending physician on admission: Braxton Santana Consults: 10/26/21 13:41 Consult to Hospitalist Routine Consulting Provider: Hospitalist Reason For Exam: admission physical 10/27/21 10:35 Consult to Infectious Diseases Routine Consulting Provider: Jenae Husain Reason for consultation: hep C; RPR pending Attending physician on discharge: Braxton Santana DS: Diagnosis Discharge Diagnosis (1) Hepatitis C: Status: Acute (2) Positive serology for syphilis: Status: Acute (3) Tobacco abuse: Status: Acute (4) Opioid dependence: Status: Acute (5) Cocaine abuse: Status: Resolved DS: Medications Discharge Medications Home Medications: Home Medications Medication Instructions Recorded Confirmed albuterol sulfate 90 mcg/actuation 2 puff INHALATION Q4H PRN 10/26/21 10/26/21 aerosol inhaler alprazolam 2 mg tablet 1 tab PO TID PRN 10/26/21 10/26/21 gabapentin 800 mg tablet 1 tab PO QID 10/26/21 10/26/21 methadone 160 mg PO DAILY 10/26/21 10/26/21 nicotine (polacrilex) 4 mg gum 4 mg BUCCAL Q1-2H 10/26/21 10/26/21 nicotine 21 mg/24 hr daily 21 mg TRANSDERMAL DAILY 10/26/21 10/26/21 transdermal patch ondansetron 8 mg disintegrating 1 tab SUBLINGUAL BID 10/26/21 10/26/21 tablet Previous Rx's Medication Instructions Recorded acetaminophen 325 mg capsule 325 mg PO QID PRN #28 cap 12/08/20 (Tylenol) doxycycline hyclate 100 mg capsule 100 mg PO DAILY #13 cap 10/22/21 sulfamethoxazole 800 1 tab PO BID #5 tab 10/22/21 mg-trimethoprim 160 mg tablet (Bactrim DS) Mental Status Exam Mental Status Exam Narrative: Pt is alert and oriented; behavior is cooperative, friendly and calm; patient is not in distress; dressed in casual attire, adequately groomed with good hygiene; mood is described as good and affect congruent, brighter; eye contact appropriate; Speech is normal rate, volume and prosody and not pressured; no psychomotor agitation/retardation present; thought process is organized and goal directed; Thought content is on tx; otherwise pertinent to relevant topics and without any delusional content, paranoid ideations or grandiosity; denies any SI/HI. There is no evidence of perceptual disturbance. ?Patients insight and judgment appear intact. Data Data Completed and Pending Completed studies during hospitalization [Text1]: 10/27/21 10/27/21 10/27/21 08:35 08:35 08:35 Estimat Average Glucose 105 Hemoglobin A1c % 5.3 Total Bilirubin 0.3 Direct Bilirubin < 0.2 AST 205 H ALT 259 H Alkaline Phosphatase 129 H Liver GGT Liver Total Bilirubin Liver Apolipoprotein A1 Liver Fibrosis ALT Liver [id number] Liver Haptoglobin Liver Fibrosis Score Liver Fibrosis Interp Liver Fibrosis Comment Liver Fibrosis Stage Necroinflammator Score Necroinflam Score Cmmt Necroinflammator Grade Total Protein 8.5 H Albumin 3.5 Triglycerides 162 Cholesterol 110 LDL Cholesterol, Calc 46 HDL Cholesterol 32 RPR T.pallidum Particle Agg T.pallidum Ab (EIA) Chlam trachomat DNA PCR Hep Bs Antigen Negative Hep Bs Antibody REACTIVE Hep B Core Total Ab Nonreactive Hepatitis C Ab (EIA) Reactive H Hep C Viral Load Hep C Viral Load Log Hepatitis C Genotype HIV 1&2 Ab/P24 Ag 4thGn N.gonorrhoeae DNA (PCR) Ref Lab Specimen ID 10/27/21 10/27/21 10/27/21 08:35 08:35 08:35 Estimat Average Glucose Hemoglobin A1c % Total Bilirubin Direct Bilirubin AST ALT Alkaline Phosphatase Liver GGT Liver Total Bilirubin Liver Apolipoprotein A1 Liver Fibrosis ALT Liver s-[id number] Liver Haptoglobin Liver Fibrosis Score Liver Fibrosis Interp Liver Fibrosis Comment Liver Fibrosis Stage Necroinflammator Score Necroinflam Score Cmmt Necroinflammator Grade Total Protein Albumin Triglycerides Cholesterol LDL Cholesterol, Calc HDL Cholesterol RPR Pending T.pallidum Particle Agg Pending T.pallidum Ab (EIA) Reactive A Chlam trachomat DNA PCR Hep Bs Antigen Hep Bs Antibody Hep B Core Total Ab Hepatitis C Ab (EIA) Hep C Viral Load Hep C Viral Load Log Hepatitis C Genotype HIV 1&2 Ab/P24 Ag 4thGn Nonreactive N.gonorrhoeae DNA (PCR) Ref Lab Specimen ID 10/28/21 10/28/21 10/29/21 16:02 16:02 16:32 Estimat Average Glucose Hemoglobin A1c % Total Bilirubin Direct Bilirubin AST ALT Alkaline Phosphatase Liver GGT Pending Liver Total Bilirubin Pending Liver Apolipoprotein A1 Pending Liver Fibrosis ALT Pending Liver l-4-Gwrkijghcuvjs Pending Liver Haptoglobin Pending Liver Fibrosis Score Pending Liver Fibrosis Interp Pending Liver Fibrosis Comment Pending Liver Fibrosis Stage Pending Necroinflammator Score Pending Necroinflam Score Cmmt Pending Necroinflammator Grade Pending Total Protein Albumin Triglycerides Cholesterol LDL Cholesterol, Calc HDL Cholesterol RPR T.pallidum Particle Agg T.pallidum Ab (EIA) Chlam trachomat DNA PCR NOT DETECTED Hep Bs Antigen Hep Bs Antibody Hep B Core Total Ab Hepatitis C Ab (EIA) Hep C Viral Load Pending Hep C Viral Load Log Pending Hepatitis C Genotype Pending HIV 1&2 Ab/P24 Ag 4thGn N.gonorrhoeae DNA (PCR) NOT DETECTED Ref Lab Specimen ID Pending DS: Summary Hospital Course Hospital Course: Pt is a 31 yo female with hx of ptsd, manic episodes, opioid dependence on methadone, cocaine abuse, spinal fusion surgery, who presents for depression in face of off medications and heroin abuse. Pt reports she has been depressed, dealing with losing her child to [facility] who is now in the custody of her [id number]. She has been struggling on/off with opiate and cocaine abuse. About a month ago, she stopped taking seroquel, feeling it was sedating and not sure it was all that helpful. Pt had a manic episode about 2 weeks ago during which time she did not sleep for 8 days, had pressured speech, racing thoughts, engaged in risky behaviors that were out of character, irritable and agitated and hyperactive; this was followed by current depression. Upon review of hx, patient endorsed episodic manic episodes during times of sobriety. Pt reports extensive trauma from childhood through adulthood and has ongoing ptsd symptoms of flashbacks, hypervigilence, panic. Pt feels methadone dose is too low and she was most stable when at around 200mg. Pt accepted likeliness of bipolar diagnosis and is considering mood stabilizer. Denies SI; denies AVH; denies etoh abuse. On admission, patient Was depressed but denied SI. Patient used Seroquel for insomnia. She was going to start on lithium however refused It and Wanted discharge before it could be initiated. Because mood stabilizer could not be established, patient was not started on any other antidepressant medication not wanting to risk triggering manic episode which can be severe. On the unit patient was tested and treated for Syphilis. She was also positive for hep C and refer to outpatient treatment. Pt asked for increasing methadone to which securities underwriter agreed. Patient was continued Xanax 2mg TID prn (she says she's been taking for years and to nancy someone off Xanax can take months; also, she has outpt prescriber and plans to continue with this med making taper just on the unit futile; discussed risk/side-effects of benzo use including barrier to resolving PTSD. She did demonstrate good insight and judgment by asking for Xanax to be changed to p.r.n. so she can work on delaying asking for it or even skipping it if a needed. Over the weekend, patient was found smoking cigarettes in another patient's room And wanted discharge saying she would work with outpt prescriber on med management. Patient was future oriented. She remained without any suicidality was not in imminent risk for harm to self or others. Her request for discharge honored. Time spent discussing smoking cessation with patient: 3 to 10 minutes Status at Discharge Functional status at discharge: independent ambulation Overall status at discharge: patient is back to baseline Time Spent with Patient Time attestation: Total time spent providing and/or coordinating discharge services: Time spent: Less than 30 minutes Discharge Plan Discharge Patient Disposition: Home, Self-Care Discharge Diagnosis: Bipolar disorder, type 1, recurrent, moderate, mixed (provisional dx) Referrals: Therapy: Isha Andrade ([facility]) [Other] - 10/31/21 1:00 pm (Telehealth ) Psych Prescriber: Sabrina Turner ([facility]) [Other] - 11/27/21 11:30 am (Telehealth- You will receive an email with a link to join the session. ) Psych Prescriber: Sabrina Turner ([facility]) [Other] - 12/25/21 10:00 am (Telehealth- You will receive an email with a link to join the session. ) Jasvir Payton MD [Physician] - 11/03/21 10:30 am Discharge Medications: New doxycycline hyclate 100 mg Tablet 100 mg PO BID 4 Days Qty: 8 0RF methadone [Methadose] 10 mg/mL Concentrate 165 mg PO DAILY Qty: 0 0RF lidocaine [Lidocaine Pain Relief] 4 % Adhesive Patch,Medicated 1 patch transdermal DAILY PRN (Reason: back pain) 30 Days Qty: 30 0RF Protocol: Apply to: Apply to: Left Arm (pt may alternate to right arm) quetiapine 100 mg tablet 100 mg PO TID 30 Days Qty: 90 0RF Continued nicotine (polacrilex) 4 mg Gum 4 mg buccal Q1-2H 30 Days Qty: 100 0RF nicotine 21 mg/24 hr Patch 24 Hour 21 mg transdermal DAILY 28 Days Qty: 28 0RF Rx Instructions: remove at bedtime albuterol sulfate 90 mcg/actuation HFA aerosol inhaler 2 puff inhalation Q4H PRN (Reason: Anxiety) 30 Days Qty: 6.7 0RF Changed gabapentin 800 mg tablet 800 mg PO QID 4 Days Qty: 16 0RF alprazolam 2 mg tablet 2 mg PO TID PRN (Reason: Anxiety) 4 Days Qty: 12 0RF Discontinued acetaminophen [Tylenol] 325 mg capsule 325 mg PO QID PRN (Reason: pain) Qty: 28 0RF doxycycline hyclate 100 mg capsule 100 mg PO DAILY Qty: 13 0RF sulfamethoxazole-trimethoprim [Bactrim DS] 800-160 mg tablet 1 tab PO BID Qty: 5 0RF ondansetron 8 mg tablet,disintegrating 1 tab sublingual BID 0RF methadone 160 mg PO DAILY 0RF Label Comments: Pt reports increased symptoms and desires an increased dose of methadone Discharge Orders: Discharge Order (Routine); Ordered 10/30/21 Ordered By: Braxton Santana Diet: regular diet Activity on Discharge: As tolerated Stand Alone Forms: Patient Portal Discharge page, Community Support Care Plan Goals: Maintain mood and safe behaviors Take medications as prescribed Continue to pursue sobriety Practice coping skills Continue with outpatient providers and reach out to them as needed Health Concerns: Mood stability and behaviors Sobriety Chronic back and wrist pain s/p fracture Plan of Treatment: Follow up with your PCP, psychiatric provider and other outpatient providers regarding above concerns Take medications as prescribed Assessment: Risk assessment at time of discharge:? Patient was interviewed prior to discharge and found to be fully oriented and without any SI or HI. Patient has insight and demonstrates good judgment in terms of wanting to pursue treatment. Patient is not in imminent risk of harm to self or others and has a safety plan that includes presenting to the closest ER or calling 911 if feeling unsafe.? Patient has been observed closely by nursing and unit staff throughout admission; patient has not engaged in any behaviors that suggest dangerousness to self or others. Discharge Date/Time: 10/30/21 16:47
[2021-10-30] MEDS: Naloxone HCl Nasal TAKE HOME 4 MG SPRAY NOSTRILALT (14:39)
[2021-11-01 09:01] LABS: HCV Log PCR 5.16 Log IU/mL (NOT DETECTED); HepC Viral Load 144000 IU/mL (NOT DETECTED)
[2021-11-02 15:57] LABS: T.Pallidum Particle Agg Test Reactive (Nonreactive)
[2021-11-02 16:42] LABS: FIB-ALT 165 U/L (6-29); FIB-Alpha-2-Macroglobulin 201 mg/dL (106-279); FIB-Apolipoprotein A1 166 mg/dL (101-198); FIB-GGT 76 U/L (3-50); FIB-Haptoglobin 72 mg/dL (43-212); FIB-Total Bilirubin 0.3 mg/dL (0.2-1.2); Liver Fibrosis Score 0.12; Liver Fibrosis Stage F0; Nec Inflam Act Grade A3
[2021-11-05 11:56] LABS: Hepatitis C Genotype 3
[2021-11-08 10:05] LABS: RPR Quantitative Reactive 1:16 (Nonreactive)
== END 2021-10-30 16:47 | disposition home or self-care (01) | DRG 753 ==
PROVIDERS: Family Medicine; Internal Medicine; Admitting Provider Psychiatry & Neurology Psychiatry; Visit Provider Psychiatry & Neurology Psychiatry
DX: F31.60 Bipolar disorder, current episode mixed, unspecified (principal); A53.0 Latent syphilis, unspecified as early or late; B19.20 Unspecified viral hepatitis C without hepatic coma; J45.909 Unspecified asthma, uncomplicated; F11.20 Opioid dependence, uncomplicated; F43.12 Post-traumatic stress disorder, chronic; F14.10 Cocaine abuse, uncomplicated; L30.9 Dermatitis, unspecified; F17.200 Nicotine dependence, unspecified, uncomplicated; Z98.1 Arthrodesis status; Z79.899 Other long term (current) drug therapy
CPT/HCPCS: 36415; 80061; 80076; 81596; 83036; 86592; 86704; 86706; 86780; 86803; 87340; 87389; 87491; 87522; 87591; 87902; 93005

== ENCOUNTER 2022-01-08 00:05 | Emergency (ER) | payer MEDICAID, SELFPAY ==
[2022-01-08 00:07] VITALS: BP 123/76; PULSE 61; RESP 18; TEMP 37.7; O2SAT 100
== END 2022-01-08 01:11 | disposition left against medical advice (07) ==
PROVIDERS: Emergency Provider Emergency Medicine
DX: F14.10 Cocaine abuse, uncomplicated (principal)
CPT/HCPCS: 99281

== ENCOUNTER 2022-01-18 09:29 | Emergency (ER) | payer MEDICAID, SELFPAY ==
--- NOTE | 2022-01-18 09:53 | PC.NURSE ---
found using heroin in [place] by security. all drug paraphenalia removed. outside to smoke currently.
== END 2022-01-18 10:17 | disposition left against medical advice (07) ==
PROVIDERS: Emergency Provider Emergency Medicine
DX: L03.119 Cellulitis of unspecified part of limb (principal); F19.90 Other psychoactive substance use, unspecified, uncomplicated

== ENCOUNTER 2023-11-25 12:59 | Emergency (ER) | payer MEDICAID, SELFPAY ==
[2023-11-25 13:03] VITALS: BP 163/92; PULSE 93; RESP 20; TEMP 36.7; O2SAT 98; BMI 21.6
--- NOTE | 2023-11-25 13:05 | ED.GENADULT ---
HPI - General Adult General Chief complaint: Urogenital-Female Stated complaint: STD testing Time Seen by Provider: 11/25/23 15:23 Related Data Previous Rx's ?Medication ?Instructions ?Recorded albuterol sulfate 90 mcg/actuation 2 puff inhalation Q4H PRN Anxiety 10/30/21 aerosol inhaler 30 days #6.7 grams alprazolam 2 mg tablet 2 mg PO TID PRN Anxiety 4 days #12 10/30/21 tabs doxycycline hyclate 100 mg tablet 100 mg PO BID 4 days #8 tabs 10/30/21 gabapentin 800 mg tablet 800 mg PO QID 4 days #16 tabs 10/30/21 lidocaine 4 % topical patch 1 patch transdermal DAILY PRN back 10/30/21 (Lidocaine Pain Relief) pain 30 days #30 ea methadone 10 mg/mL oral 165 mg (16.5 mL) PO DAILY #0 mL 10/30/21 concentrate (Methadose) nicotine (polacrilex) 4 mg gum 4 mg buccal Q1-2H 30 days #100 ea 10/30/21 nicotine 21 mg/24 hr daily 21 mg transdermal DAILY 28 days 10/30/21 transdermal patch #28 ea quetiapine 100 mg tablet 100 mg PO TID 30 days #90 tabs 10/30/21 Allergies Allergy/AdvReac Type Severity Reaction Status Date / Time No Known Allergies Allergy Verified 06/06/22 15:47 [No Known Allergies*] [facility] Past Medical History Medical History (Updated 11/30/23 @ 09:18 by Batsheva Diaz NP) Positive serology for syphilis Cocaine abuse Opioid dependence Chronic post-traumatic stress disorder (PTSD) Bipolar 1 disorder, mixed Substance abuse depression Hepatitis C Asthma Wrist fracture Lumbar vertebral fracture Chronic pain Surgical History (Updated 06/06/22 @ 15:47 by Grace Bingham) History of back surgery H/O wrist surgery Social History Social History (System 06/06/22 @ 15:47 by Grace Bingham) Alcohol intake: current Patient Tobacco Use Status: Current everyday Tobacco user Tobacco use type: Cigarette Second Hand Smoke Exposure: Yes Substance Use Type: Crack/Cocaine, Opiates and Prescription Drugs Advance Directives: No Advance Directives Information Provided: Yes service: No Sexual orientation: Straight/Heterosexual Physical Exam ED Vital Signs: BMI result Body Mass Index 21.6 Course Course Course Narrative: This is a rapid medical exam: Additional HPI, ROS, PE not included below will be deferred to primary provider. Patient is a 33-year-old female with history of Hep C, asthma, eczema presenting to the ED with complaint of urinary frequency, dysuria. States 4 mos ago was positive for gonorrhea, did not complete treatment. Plan: UA, CT NG urine Patient left emergency department without completing treatment. Urine culture results positive for E. coli. Unable to reach patient/leave voicemail at either number listed in chart. Prescription for cefuroxime sent to pharmacy. Medical Decision Making Lab Data Labs: Lab Results 11/25/23 Range/Units 13:44 Urine Color Yellow Urine Appearance Cloudy Urine pH 5.5 (5.0-9.0) Ur Specific [place] >= 1.030 H (1.005-1.025) Urine Protein Trace (Neg-Trace) mg/dL Urine Glucose (UA) Negative (Negative) mg/dL Urine Ketones Negative (Negative) mg/dL Urine Blood Negative (Negative) Urine Nitrite Negative (Negative) Ur Leukocyte Esterase Moderate (2+) H (Negative) Urine RBC 0-2 (0-2) /HPF Urine WBC 21-50 (0-5) /HPF Ur Squamous Epith Cells >20 (0-2) /HPF Urine Bacteria 2+ (None Seen) Hyaline Casts 0-2 (0-2) /LPF Urine Test NEGATIVE (NEGATIVE) Chlam trachomat DNA PCR NOT DETECTED (Not Detect.) N.gonorrhoeae DNA (PCR) NOT DETECTED (Not Detect.) Discharge Plan Discharge Clinical Impression: Urinary tract infection Patient Disposition: Left W/O Completing Treatment Prescriptions: No Action doxycycline hyclate 100 mg Tablet 100 mg PO BID 4 Days Qty: 8 0RF methadone [Methadose] 10 mg/mL Concentrate 165 mg PO DAILY Qty: 0 0RF lidocaine [Lidocaine Pain Relief] 4 % Adhesive Patch,Medicated 1 patch transdermal DAILY PRN (Reason: back pain) 30 Days Qty: 30 0RF Protocol: Apply to: Apply to: Left Arm (pt may alternate to right arm) nicotine (polacrilex) 4 mg Gum 4 mg buccal Q1-2H 30 Days Qty: 100 0RF nicotine 21 mg/24 hr Patch 24 Hour 21 mg transdermal DAILY 28 Days Qty: 28 0RF Rx Instructions: remove at bedtime albuterol sulfate 90 mcg/actuation HFA aerosol inhaler 2 puff inhalation Q4H PRN (Reason: Anxiety) 30 Days Qty: 6.7 0RF quetiapine 100 mg tablet 100 mg PO TID 30 Days Qty: 90 0RF gabapentin 800 mg tablet 800 mg PO QID 4 Days Qty: 16 0RF alprazolam 2 mg tablet 2 mg PO TID PRN (Reason: Anxiety) 4 Days Qty: 12 0RF Discharge Date/Time: 11/25/23 15:36
[2023-11-25 13:52] LABS: Appearance Urine Cloudy; Color Urine Yellow; Glucose Urine UA Negative (Negative); Leukocyte Esterase Urine Moderate (2+) (Negative); Nitrite Urine Negative (Negative); PH 5.5 (5.0-9.0); Specific Gravity - Urine >= 1.030 (1.005-1.025); UMIC TRIGGER UACC YES; Urine Blood Negative (Negative); Urine Ketones Negative (Negative); Urine Protein Trace mg/dL (Neg-Trace)
[2023-11-25 13:53] LABS: Urine Pregnancy NEGATIVE (NEGATIVE)
[2023-11-25 13:54] LABS: UPreg QC Valid YES
[2023-11-25 14:19] LABS: Bacteria Urine 2+ (None Seen); Hyaline Casts Urine 0-2 /LPF (0-2); RBC Urine 0-2 /HPF (0-2); Squamous Epithelial Cell Urine >20 /HPF (0-2); UACC Culture Trigger YES; WBC Urine 21-50 /HPF (0-5)
[2023-11-25 15:22] LABS: CT PCR NOT DETECTED (Not Detect.); NG PCR NOT DETECTED (Not Detect.)
== END 2023-11-25 15:36 | disposition left against medical advice (07) ==
PROVIDERS: Registered Nurse Emergency; Emergency Provider Emergency Medicine; PCP Internal Medicine
DX: N39.0 Urinary tract infection, site not specified (principal); F17.210 Nicotine dependence, cigarettes, uncomplicated; Z20.2 Contact with and (suspected) exposure to infections with a predominantly sexual mode of transmission; Z79.899 Other long term (current) drug therapy
CPT/HCPCS: 0353U; 81001; 81025; 87086; 87088; 87186; 99282; 99283